=== PATIENT | female | born 1995 | race Caucasian/White ===

== ENCOUNTER 2021-12-04 17:00 | Emergency (ER) | payer BC, SELFPAY ==
[2021-12-04 17:02] VITALS: BP 125/88; PULSE 96; RESP 16; TEMP 36.5; O2SAT 96
--- NOTE | 2021-12-04 17:24 | ED.GENADUL_ITS ---
Discharge Plan Disposition Patient Disposition: HOME Condition: Stable Discharge Details Clinical Impression: Cellulitis ED Provider: Giuseppe Carvalho Home Meds and New Rx's Prescriptions: New sulfamethoxazole-trimethoprim [Bactrim DS] 800-160 mg tablet 1 tab PO BID Qty: 14 0RF amoxicillin-pot clavulanate 875-125 mg tablet 1 tab PO BID Qty: 14 0RF Discharge Instructions Instructions: Cellulitis (ED) Additional Instructions: You have an infection of the skin causing the redness and pain if not improving in 3 days have the area evaluated again if you have severe worsening pain, fevers or feel more ill return to the emergency department Medical Decision Making 26 yo female who denies chronic medical problems comes in with 4 days of right buttock redness and pain. She states she noticed it 4 days ago and today while hiking was having pain. She is not sure if she got bit by something or scratched. She appears well and has stable vitals. She has 3x4cm erythema on the left mid buttock. She has no fluctuance or drainage, there is an area in the middle that appears to be either an abrasion or possible insect bite. On bedside u/s there is no fluid collection but there is a cobblestone appearance. Seems most consistent with cellulitis no findings to suggest abscess. Will start on augmentin and bactrim. She has stable vitals, appears well and do not feel she requires workup for sepsis. Advised to f/u with pcp if not improving within a week and return precautions given Differential Diagnosis Differential Diagnosis: cellulitis, abscess HPI General Mode of arrival: ambulatory . Date/Time Provider Initiated Documentation: 12/04/21 17:00 . Limitations to Documentation: no limitations . Information obtained by: patient . History of Present Illness 26 year old F presents to the emergency department with the chief complaint of red area on buttock, described as moderate, Patient started experiencing this day(s) (4) and it has been constant. No relieving factors improve symptom(s), No exacerbating factors reported . Patient notes no other symptoms.. Patient did receive the following treatments prior to arrival, none Related Data Home Medications Medication Instructions Recorded Confirmed amoxicillin 875 mg-potassium 1 tab PO BID #14 tabs 12/04/21 clavulanate 125 mg tablet sulfamethoxazole 800 1 tab PO BID #14 tabs 12/04/21 mg-trimethoprim 160 mg tablet (Bactrim DS) Previous Rx's Medication Instructions Recorded amoxicillin 875 mg-potassium 1 tab PO BID #14 tabs 12/04/21 clavulanate 125 mg tablet sulfamethoxazole 800 1 tab PO BID #14 tabs 12/04/21 mg-trimethoprim 160 mg tablet (Bactrim DS) Allergies Allergy/AdvReac Type Severity Reaction Status Date / Time No Known Allergies Allergy Unverified 12/04/21 17:06 General Stated Complaint: RashLesion GERDA: 4 Review of Systems All systems reviewed & are unremarkable except as noted in HPI and below Constitutional Constitutional: Denies chills, Denies fever(s) and Denies weakness Cardiovascular Cardiovascular: Denies chest pain and Denies dyspnea Respiratory Respiratory: Denies dyspnea Gastrointestinal Gastrointestinal: Denies abdominal pain and Denies vomiting Musculoskeletal Musculoskeletal: Denies joint swelling Neurologic Neurologic: Denies weakness PFSH All Active Problems (Updated 12/04/21 @ 17:31 by Giuseppe Carvalho MD) Cellulitis (Acute) Social History Smoking/Tobacco Use Status: Never Smoking risk assessment performed?: Yes Alcohol Intake: never Substance use type: does not use Do you feel safe at home: Yes Do you feel safe in your relationship?: Yes Exam Const General: no acute distress Orientation: alert HENMT Head: normal to inspection Ears: external ears normal General nose exam: external nose normal Mouth: moist mucous membranes Eyes General: appearance normal, both eyes and all related structures Neck Neck: normal visual inspection Resp Effort & Inspection: normal respiratory effort and able to speak in complete sentences Cardio Rate: regular rate Skin General skin exam: erythema Neuro General: patient alert and patient oriented x3 Extrem General: normal to inspection Psych Mental Status: mental status grossly normal Course Vital Signs Vital signs: Vital Signs Temperature 36.5 C 12/04/21 17:02 Pulse 96 H 12/04/21 17:02 Respiratory Rate 16 12/04/21 17:02 Blood Pressure 125/88 12/04/21 17:02 Pulse Oximetry 96 12/04/21 17:02 Temperature 36.5 C 12/04/21 17:02 Pulse 96 H 12/04/21 17:02 Respiratory Rate 16 12/04/21 17:02 Respiratory Effort 12/04/21 17:07 Blood Pressure 125/88 12/04/21 17:02 Pulse Oximetry 96 12/04/21 17:02 Pain Level 8 12/04/21 17:02
[2021-12-04] MEDS: Sulfameth/Trimeth DS TAB 1 TAB PO ×2 (17:32)
[2021-12-04] MEDS: Amoxicillin 875/Clav. 125 TAB PO ×2 (17:32)
== END 2021-12-04 17:38 | disposition home or self-care (01) ==
LOC: ER 17:38
PROVIDERS: Emergency Provider Emergency Medicine
DX: L03.317 Cellulitis of buttock (principal)
CPT/HCPCS: 99283

== ENCOUNTER 2021-12-05 09:35 | Emergency (ER) | payer BC, SELFPAY ==
[2021-12-05 09:38] VITALS: BP 116/72; PULSE 86; RESP 20; TEMP 36.7; O2SAT 98
--- NOTE | 2021-12-05 10:12 | ED.GENADUL_ITS ---
Discharge Plan Disposition Patient Disposition: HOME Condition: Stable Discharge Details Clinical Impression: Cellulitis, Abscess Primary Care Provider: Angela,Local ED Provider: Symone Mendoza Home Meds and New Rx's Prescriptions: New fluconazole [Diflucan] 150 mg tablet 150 mg PO DAILY Qty: 1 0RF Continued sulfamethoxazole-trimethoprim [Bactrim DS] 800-160 mg tablet 1 tab PO BID Qty: 14 0RF amoxicillin-pot clavulanate 875-125 mg tablet 1 tab PO BID Qty: 14 0RF Discharge Instructions Instructions: Cellulitis (ED), Abscess (ED) Additional Instructions: Warm compresses try to apply moist heat at least 4-6 times a day for 5 to 10 minutes Take ibuprofen and Tylenol for pain Yogurt daily while on antibiotic or acidophilus pills Recheck in 48 hours with persistent or worsening symptoms Earlier reassessment with fever, chills, or significant spreading redness You will likely take 48 hours for antibiotics to become effective I am prescribing a dose of Diflucan, should you develop a yeast infection you may take up a single dose of medication, otherwise you will not need it Discharge Data Discharge Date/Time-TO BE ENTERED AT DEPARTURE: 12/05/21 10:31 Medical Decision Making Patient appears well, she is afebrile and nontoxic She will continue on her antibiotic She is encouraged to take acidophilus pills daily I did offer incision and drainage, however patient declines at this time and prefers to try outpatient antibiotics She is aware likely take 48 hours for these to become effective She will apply warm compresses Medical Records Medical records reviewed: Yes I reviewed the patient's medical records. Lab Data Lab results reviewed: Yes I reviewed the patient's lab results. HPI General Date/Time Provider Initiated Documentation: 12/05/21 09:50 . HPI Narrative: This 26-year-old female presents with report of persistent and not worsening abscess to her buttock. She was evaluated yesterday in the emergency department and started on Bactrim and Augmentin per patient. She been taking the antibiotic as prescribed. She denies any fever or chills. She presents secondary to some additional questions that she had and with persistent discomfort. Related Data Home Medications Medication Instructions Recorded Confirmed amoxicillin 875 mg-potassium 1 tab PO BID #14 tabs 12/04/21 12/05/21 clavulanate 125 mg tablet sulfamethoxazole 800 1 tab PO BID #14 tabs 12/04/21 12/05/21 mg-trimethoprim 160 mg tablet (Bactrim DS) fluconazole 150 mg tablet 150 mg PO DAILY #1 tab 12/05/21 (Diflucan) Previous Rx's Medication Instructions Recorded amoxicillin 875 mg-potassium 1 tab PO BID #14 tabs 12/04/21 clavulanate 125 mg tablet sulfamethoxazole 800 1 tab PO BID #14 tabs 12/04/21 mg-trimethoprim 160 mg tablet (Bactrim DS) fluconazole 150 mg tablet 150 mg PO DAILY #1 tab 12/05/21 (Diflucan) Allergies Allergy/AdvReac Type Severity Reaction Status Date / Time No Known Allergies Allergy Unverified 12/05/21 09:44 General Stated Complaint: Recheck GERDA: 5 Review of Systems All systems reviewed & are unremarkable except as noted in HPI and below PFSH All Active Problems (Updated 12/05/21 @ 10:15 by ORQUIDEA Bansal) Cellulitis (Acute) Abscess (Acute) Social History Smoking/Tobacco Use Status: Never Smoking risk assessment performed?: Yes Alcohol Intake: never Substance use type: does not use Do you feel safe at home: Yes Do you feel safe in your relationship?: Yes Exam Const General: cooperative, comfortable and no acute distress Skin Full body images: 1. Cellulitis with central induration and small papule noted, approximately a quarter size region of induration approximately 3 cm of surrounding cellulitis without fluctuance crepitus Course Vital Signs Vital signs: Vital Signs Temperature 36.7 C 12/05/21 09:38 Pulse 86 12/05/21 09:38 Respiratory Rate 20 12/05/21 09:38 Blood Pressure 116/72 12/05/21 09:38 Pulse Oximetry 98 12/05/21 09:38 Temperature 36.7 C 12/05/21 09:38 Temperature Source Temporal Artery Scan 12/05/21 09:38 Pulse 86 12/05/21 09:38 Respiratory Rate 20 12/05/21 09:38 Respiratory Effort 12/05/21 09:42 Blood Pressure 116/72 12/05/21 09:38 Blood Pressure Position Supine 12/05/21 09:38 Pulse Oximetry 98 12/05/21 09:38 Oxygen Delivery Method Room Air 12/05/21 09:38 Oxygen Flow Rate 0 12/05/21 09:38 Pain Level 5 12/05/21 09:38
== END 2021-12-05 10:31 | disposition home or self-care (01) ==
PROVIDERS: Emergency Provider Physician Assistant
DX: L03.317 Cellulitis of buttock (principal); L02.31 Cutaneous abscess of buttock
CPT/HCPCS: 99283